=== PATIENT | male | born 1960 | race Caucasian/White ===

== ENCOUNTER 2019-06-25 22:35 | Inpatient (IN) | payer OTHER ==
[~2019-06-25] VITALS: Ht 30.5 cm; Wt 111.1 kg
[2019-06-26] VITALS (7 sets, daily range): BP systolic 15–165; BP diastolic 52–91
[2019-06-26] MEDS ORDERED: cefTRIAXone 1GM/50ML D5W 50 ML IV ONE ×2 (01:15→12:00)
[2019-06-26] MEDS ORDERED: VANCOMYCIN 1GM/250ML 250 ML IV ONE (01:45)
[2019-06-26] MEDS ORDERED: ALUM & MAG HYDROX-SIMETH LIQ(MAALOX) 30 ML PO PRN (02:00)
[2019-06-26] MEDS ORDERED: NITROGLYCERIN 0.4 MG SL TAB SL PRN (02:00)
[2019-06-26] MEDS ORDERED: ONDANSETRON HCL 4 MG/2 ML VIAL IV PRN (02:00)
[2019-06-26] MEDS ORDERED: HYDROmorphone HCL 2 MG/ML VL IV PRN (02:00)
[2019-06-26] MEDS ORDERED: ACETAMINOPHEN 325 MG TAB PO PRN (02:00)
[2019-06-26] MEDS ORDERED: MORPHINE SULFATE 4 MG/ML SYR/VIAL IV PRN (02:00)
[2019-06-26] MEDS ORDERED: MORPHINE SULF INJ 2 MG/ML SYRINGE 1ML IV PRN (02:00)
[2019-06-26] MEDS ORDERED: DEXTROSE (50%) 50ML SYRG IV PRN (02:00)
[2019-06-26] MEDS ORDERED: LACTULOSE 20Gm/30ML SOLN PO ONE (02:00)
[2019-06-26 02:14] LABS: Basophils # (auto) 0.1 10 ^3/uL (0-0.2); Basophils % (auto) 1.5 % (0.0-2.0); Eosinophils # (auto) 0.3 10 ^3/uL (0-0.8); Eosinophils % (auto) 4.6 % (0.0-7.0); Hematocrit 27.5 % (41.0-53.0); Hemoglobin 9.5 g/dL (13.5-17.5); Lymphocytes # (auto) 1.1 10 ^3/uL (0.4-5.4); Mean Corpuscular Hemoglobin 33.8 pg (28.0-32.0); Mean Corpuscular Hgb Conc. 34.4 g/dL (32.0-36.0); Mean Corpuscular Volume 98.5 fL (80.0-100.0); Monocytes # (auto) 0.9 10 ^3/uL (0-1.3); Monocytes % (auto) 14.7 % (0.0-12.0); Neutrophils # (auto) 3.5 10 ^3/uL (1.6-8.6); Neutrophils % (auto) 60.2 % (37.0-80.0); Platelet Count (auto) 238 10^3/uL (140-450); Red Cell Distribution Width 13.7 % (11.8-14.3); White Blood Cell 5.8 10^3/uL (4.4-10.8)
[2019-06-26 02:36] LABS: Anion Gap 10 (5-15); BUN/Creatinine Ratio 5.6; Blood Urea Nitrogen 42 mg/dL (7-18); Calcium 9.4 mg/dL (8.5-10.1); Carbon Dioxide 29 mmol/L (21-32); Chloride 98 mmol/L (98-107); GFR African American 10 mL/min; GFR Non-African American 8 mL/min; Glucose 108 mg/dL (74-106); Potassium 4.2 mmol/L (3.5-5.1); Sodium 137 mmol/L (136-145)
--- NOTE | 2019-06-26 03:02 | NUR ---
PATIENT ARRIVED TO UNIT Patient arrived to unit from ED. Patient is A&O X's 4 with no s/s of distress. Patient reports pain to lower extremities and relates it to his neuropathy and describes it as a "nerve pain that starts from feet and shoots up legs." rated at a 8. Patient also c/o pain at dialysis site to his right upper chest. Educated patient on POC/pain medication/pain management and to use call light when in need of assistance. Patient verbalized understanding. Will provide pain medication as ordered. Patient has a zion catheter site to right upper chest that is currently covered with gauze that is C/D/I. Patient has 20G IV to left hand. Oriented patient to unit/call light/tv/bathroom. Patient verbalized understanding. Bed is in lowest/locked position with side rails up X's 2 and call light is within reach of patient. Bed alarm is on for safety. Will continue care.
[2019-06-26] MEDS: DOCUSATE SOD 100 MG CAP PO SCH ×3 (03:41→22:06)
[2019-06-26] MEDS: SENNA 8.6 MG TAB PO SCH ×2 (03:41→22:06)
[2019-06-26] MEDS: HYDROcodone-ACET 5/325MG TAB PO PRN ×2 (03:43→08:43)
[2019-06-26] MEDS: InsuLIN REG 1unit/0.01ml Soln (100units/ml) SC SCH ×6 (04:00→23:59)
[2019-06-26] MEDS: SODIUM CHLORIDE 0.9% 1,000 ML IV SCH ×2 (04:03→18:27)
[2019-06-26] MEDS: ACCU-CHEK COMFORT CURVE STRIP VI SCH ×6 (04:03→23:59)
--- NOTE | 2019-06-26 04:50 | NUR ---
PAIN REASSESSMENT patient resting in bed and shows no s/s of distress or discomfort. Will continue care
[2019-06-26] MEDS ORDERED: GABA100C9 PO (05:01)
[2019-06-26] MEDS ORDERED: SEVE800T8 PO (05:01)
[2019-06-26] MEDS ORDERED: [UNRECOGNIZED DRUG - CODE] PO (05:01)
[2019-06-26] MEDS ORDERED: CARV3.1240 PO (05:01)
[2019-06-26] MEDS ORDERED: HYDR-4296 PO (05:01)
[2019-06-26] MEDS ORDERED: TAMS0.4C36 PO (05:01)
[2019-06-26] MEDS: GABAPENTIN 300 MG CAP PO SCH ×3 (05:40→22:06)
--- NOTE | 2019-06-26 06:27 | NUR ---
MRSA SWAB MRSA swab sent via bullet system
--- NOTE | 2019-06-26 06:46 | NUR ---
RECEIVED CALL FROM MD FRAGA Received orders to place the consult for nephro: Angela, because patient receives dialysis at [facility] in [place]. Orders were placed and community engagement manager notified of this change in consult.
--- NOTE | 2019-06-26 07:15 | NUR ---
Opening Shift Notes Report received and assumed care of patient, awake and alert. No S/S of distress/SOB or pain but still c/o abdominal pain due to no bowel movement x 1 week. Instructed on POC and nursing routines,call light within reach patient reminded instructed to call for assistance verbalized understanding.will continue to monitor for changes Q1hr and PRN.
[2019-06-26] MEDS ORDERED: CARVEDILOL 12.5 MG TAB PO SCH (10:00)
[2019-06-26] MEDS: LACTULOSE 20Gm/30ML SOLN PO SCH (10:59)
[2019-06-26] MEDS: AZITHROMYCIN 500MG/ 250ML 250 ML IV SCH (11:00)
--- NOTE | 2019-06-26 11:55 | NUR ---
MD VISIT DR. Pebbles BURGOS HERE TO SEE AND EXAMINED PATIENT,INFORMED OF PATIENT STATUS AND C/O CONSTIPATION DESPITE STOOL SOFTENERS BEING GIVEN, RECEIVED ORDER FOR MAGNESIUM CITRATE 1 BOTTLE AND TO CONSUL UROLOGIST.
[2019-06-26] MEDS ORDERED: MAGNESIUM CITRATE SOLUTION 300 ML BTL PO ONE (12:00)
--- NOTE | 2019-06-26 12:15 | NUR ---
INFORMED PATIENT BP 89/47,DR. Pebbles BURGOS HERE AND INFORMED OF ABOVE,INFORMED PATIENT HAD COREG 12.5 MG THIS A.M. RECEIVED ORDER TO HOLD COREG,CONTINUE IVF OF .9NS AT 60/HR AND CONNECT PATIENT TO TELEMETRY
--- NOTE | 2019-06-26 12:45 | NUR ---
BP RECHECKED 101/65, HR 69
--- NOTE | 2019-06-26 12:46 | NUR ---
C/O NAUSEA,MEDICATED WITH ZOFRAN SEE eMAR
--- NOTE | 2019-06-26 13:31 | NUR ---
[facility] Bill CALLED RECEIVED ORDER TO CONSULT INTERVENTION RADIOLOGIST FOR RIGHT NEPHROSTOMY TUBE PLACEMENT AND ORDER PT,PTT NOW INSTEAD OF TOMORROW.
--- NOTE | 2019-06-26 13:45 | NUR ---
BP RECHECKED 96/59,HR 71,PATIENT INSTRUCTED TO STAY IN BED AT THIS TIME.PATIENT VERBALIZED UNDERSTANDING.
--- NOTE | 2019-06-26 14:01 | NUR ---
CALLED,INFORMED PATIENT STATUS AND RECEIVING NS AT 60 CC/HR DUE TO LOW BP,STATED OK TO KEEP IVF RUNNING,STATED PATIENT WILL BE DIALYZE IN A.M.
[2019-06-26 15:16] LABS: INR 1.14 (0.9-1.15); Partial Thromboplastin Time 31.3 sec (23.64-32.05)
--- NOTE | 2019-06-26 17:00 | NUR ---
PATIENT TO RESTROOM STATED HAD LARGE BOWEL MOVEMENT
--- NOTE | 2019-06-26 19:00 | NUR ---
OPENING NOTE Received report from day shift RN. Patient is currently resting in bed with no s/s of distress or discomfort. Bed is in lowest/locked position with side rails up X's 2 and call light is within reach of patient. Walker is at bedside. Bed alarm set for safety. Will continue care.
--- NOTE | 2019-06-26 19:20 | NUR ---
Status unchanged no distress no discomfort,report given to incoming NOC RN.
--- NOTE | 2019-06-27 | NUR ---
PATIENT NPO Patient is NPO. Patient aware and verbalized understanding. No drinks/food at bedside.
[2019-06-27] MEDS: cefTRIAXone 1GM/50ML D5W 50 ML IV SCH (01:43)
[2019-06-27] MEDS: InsuLIN REG 1unit/0.01ml Soln (100units/ml) SC SCH ×5 (04:00→19:56)
[2019-06-27] MEDS: ACCU-CHEK COMFORT CURVE STRIP VI SCH ×5 (04:03→19:56)
[2019-06-27 04:49] VITALS: BP 143/74
--- NOTE | 2019-06-27 04:54 | NUR ---
SPOKE WITH DIALYSIS NURSE Rn notified me that she will be at the hospital for dialysis treatment in about one hour. Told her that there were no orders for dialysis but patient is supposed to receive it on tue/tue/ and fridays. She will contact MD Miller for the orders.
[2019-06-27] MEDS: GABAPENTIN 300 MG CAP PO SCH ×3 (05:26→21:18)
[2019-06-27] MEDS: HYDROcodone-ACET 5/325MG TAB PO PRN (05:52)
--- NOTE | 2019-06-27 06:15 | NUR ---
DIALYSIS NURSE AT BEDSIDE. PATIENT HAVING DIALYSIS DONE AT THIS TIME
--- NOTE | 2019-06-27 07:30 | NUR ---
Opening Shift Note Assuming care of patient at this time. Patient is resting in bed with eyes closed. circus hand at bedside performing dialysis. Bed is locked and lowered with side rails up x2. Patient shows no signs or symptoms of distress or shortness of breath. Instructed patient on the plan of care for today and to call for assistance as needed. Call light within reach. Will continue to round hourly and as needed.
[2019-06-27 09:00] VITALS: BP 131/74
[2019-06-27] MEDS ORDERED: FLUoxetine HCL 20 MG CAP PO ONE (10:30)
--- NOTE | 2019-06-27 11:00 | NUR ---
Dialysis complete Patient's dialysis is complete. 2L were removed. BP: 137/71, HR: 92, Pain: 8/10, will medicate according to doctor's orders.
[2019-06-27] MEDS: SODIUM CHLORIDE 0.9% 1,000 ML IV SCH (11:07)
[2019-06-27] MEDS: LACTULOSE 20Gm/30ML SOLN PO SCH (11:30)
[2019-06-27] MEDS: MORPHINE SULF INJ 2 MG/ML SYRINGE 1ML IV PRN ×2 (11:30→19:53)
[2019-06-27] MEDS: AZITHROMYCIN 500MG/ 250ML 250 ML IV SCH (11:30)
[2019-06-27] MEDS: DOCUSATE SOD 100 MG CAP PO SCH ×2 (11:30→21:19)
--- NOTE | 2019-06-27 11:30 | NUR ---
Pain Patient is complaining of back pain, 10/21. Will administer morphine according to doctor's orders.
--- NOTE | 2019-06-27 11:30 | NUR ---
Pain Patient is complaining of generalized back pain, 10/21. Administered morphine at this time according to doctor's orders. Will reassess.
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
--- NOTE | 2019-06-27 12:00 | NUR ---
Refusal of Nephrostomy Tube Patient has been going back and forth about proceeding with procedure scheduled for today. Ultimately, patient has decided to not have nephrostomy tube placed.
--- NOTE | 2019-06-27 12:00 | NUR ---
Pain Reassessment Patient states that the pain has resolved to 6/10, which at this time is tolerable for him.
--- NOTE | 2019-06-27 12:45 | NUR ---
assessment re: betty consult requesting placement Patient is a 58 year old male who is alert and oriented. Prior to admission patient rented a room and functioned independently. Patient informed me he is able to care for his own ADLs. Per patient he would like SNF placement due to weakness. Patient will need a PT eval to determine if he qualifies for SNF. Patient is on dialysis with [facility] MWF. Patient informed me he has a fww and a cane for home use. I informed patient he has a right to speak to a secondary social studies teacher regarding all care. I informed patient he has a right to participate in any and all discharge planning. Patient has a POA and advanced directive. Patient verbalized understanding. Addendum: 06/27/19 at 1249 by Elizabeth CORTEZ Amended: Links added.
[2019-06-27 13:00] VITALS: BP 124/65
[2019-06-27] MEDS ORDERED: SODIUM CHL 0.9% 1000 ML BAG XX ONE (13:30)
[2019-06-27 16:39] VITALS: BP 122/63
--- NOTE | 2019-06-27 18:00 | NUR ---
Urology Consult Lucas at bedside discussing plan of care with patient. Lucas aware that patient refused nephrostomy tube. New order for renal scan scheduled for tomorrow to see if kidney is functioning. Patient aware.
--- NOTE | 2019-06-27 19:30 | NUR ---
OPENING NOTE REPORT RECEIVED FROM DAYSHIFT RN PATIENT IS A/OX4 RESTING IN BED. PHYSICAL ASSESSMENT DONE-SEE INTERVENTIONS. RIGHT UPPER CHEST LEATHA IN PLACE. POC DISCUSSED, ALL QUESTIONS ANSWERED. WILL MONITOR Q1H PRN THROUGHOUT SHIFT,CALL LIGHT WITHIN REACH.
--- NOTE | 2019-06-27 19:35 | NUR ---
Closing Shift Note Patient resting in bed. No distress noted. Report given. Will endorse care to the warehouse shift supervisor RN.
--- NOTE | 2019-06-27 19:53 | NUR ---
PAIN PATIENT C/O 9/10 PAIN TO BACK PATIENT REQUESTED MORPHINE. MORPHINE ADMINISTERED ORDERED-SEE EMAR FOR DETAILS WILL REASSESS IN 30MIN
--- NOTE | 2019-06-27 20:23 | NUR ---
PAIN REASSESSMENT PATIENT SLEEPING AT THIS TIME. NO SIGNS OF PAIN NOTED
[2019-06-27] MEDS ORDERED: EPOETIN ALFA 4,000 UNIT/ML VL SC ONE (21:00)
[2019-06-27] MEDS: SENNA 8.6 MG TAB PO SCH (21:19)
[2019-06-27 22:00] VITALS: BP 130/72
[2019-06-28] MEDS: MORPHINE SULF INJ 2 MG/ML SYRINGE 1ML IV PRN (00:36)
[2019-06-28] MEDS: ACCU-CHEK COMFORT CURVE STRIP VI SCH ×5 (00:36→16:00)
--- NOTE | 2019-06-28 00:36 | NUR ---
PAIN PATIENT STATES HE IS HAVING 8/10 PAIN TO HIS BACK AND LEGS. PATIENT REQUESTED MORPHINE FOR PAIN. MORPHINE ADMINISTERED ORDERED BY MD. SEE EMAR FOR DETAILS WILL REASSESS IN 30 MINS
--- NOTE | 2019-06-28 01:06 | NUR ---
PAIN REASSESSMENT PATIENT SLEEPING COMFORTABLY AT THIS TIME. NO SIGNS OF PAIN NOTED. WILL CONTINUE TO MONITOR
[2019-06-28] MEDS: cefTRIAXone 1GM/50ML D5W 50 ML IV SCH (01:50)
[2019-06-28] MEDS: InsuLIN REG 1unit/0.01ml Soln (100units/ml) SC SCH ×5 (04:00→16:00)
[2019-06-28 05:00] VITALS: BP 142/90
[2019-06-28] MEDS: GABAPENTIN 300 MG CAP PO SCH ×2 (06:08→14:00)
--- NOTE | 2019-06-28 06:54 | NUR ---
CLOSING PATIENT RESTING COMFORTABLY IN BED. NO S/S OF DISTRESS NOTED. CALL LIGHT WITHIN REACH. WILL ENDORSE CARE TO AM SHIFT RN
--- NOTE | 2019-06-28 07:20 | NUR ---
Opening shift note Assumed care of patient. Patient A&Ox4, respirations even and non-labored with no s/s of distress. Discussed POC and upcoming procedure with patient who verbalized understanding. IV flushed, patent and intact. Bed lowered/locked with 2 side rails up. Call light within reach. Will continue to monitor.
[2019-06-28 08:37] VITALS: BP 162/93
[2019-06-28] MEDS: LACTULOSE 20Gm/30ML SOLN PO SCH (09:27)
[2019-06-28] MEDS: DOCUSATE SOD 100 MG CAP PO SCH (09:28)
[2019-06-28] MEDS ORDERED: AZITHROMYCIN 250 MG TAB PO SCH (10:00)
[2019-06-28] MEDS ORDERED: FLUoxetine HCL 20 MG CAP PO SCH (10:00)
--- NOTE | 2019-06-28 10:30 | NUR ---
Elevated Blood Pressure Patient has a blood pressure of 162/93, heart rate of 89. Notified Dr. Schultz, no new orders given.
[2019-06-28] MEDS ORDERED: FUROSEMIDE 100 MG/10ML VIAL IV ONE (11:30)
[2019-06-28 12:30] VITALS: BP_SYST 138; BP_SYST 148; BP_DIAS 54; BP_DIAS 77
[2019-06-28 13:35] VITALS: BP 162/93
--- NOTE | 2019-06-28 16:19 | NUR ---
Discharge Discharge instructions given as ordered. Encourage to follow up with PMD as instructed. All questions and concerns addressed. Patient verbalized understanding. Medication reconciliation form completed and copy given to patient. IV removed with catheter intact, pressure dressing applied. Telemetry unit returned to ICU. Patient taken to vehicle via wheelchair with all personal belongings, accompanied by staff. No distress noted at time of departure.
== END 2019-06-28 16:00 | disposition home or self-care (01) | DRG 388 ==
LOC: ER 22:46 → OVERFLOW 22:47 → WEST WING 06-26 03:02 → TELE-WESTW 06-26 12:22
PROVIDERS: ADMIT Hospitalist; ATTEND Family Medicine
PROC: 5A1D70Z Performance of Urinary Filtration, Intermittent, Less than 6 Hours Per Day (ICD-10-PCS; principal; 2019-06-27)
DX: K56.41 Fecal impaction (principal); J18.9 Pneumonia, unspecified organism; N18.6 End stage renal disease; I12.0 Hypertensive chronic kidney disease with stage 5 chronic kidney disease or end stage renal disease; N13.2 Hydronephrosis with renal and ureteral calculous obstruction; E11.40 Type 2 diabetes mellitus with diabetic neuropathy, unspecified; D63.1 Anemia in chronic kidney disease; E11.22 Type 2 diabetes mellitus with diabetic chronic kidney disease; F32.9 Major depressive disorder, single episode, unspecified; Z79.899 Other long term (current) drug therapy; Z99.2 Dependence on renal dialysis; Z83.3 Family history of diabetes mellitus; Z87.442 Personal history of urinary calculi; Z82.49 Family history of ischemic heart disease and other diseases of the circulatory system; Z85.528 Personal history of other malignant neoplasm of kidney; Z90.5 Acquired absence of kidney
CPT/HCPCS: 36415; 71250; 74176; 78707; 80048; 82962; 83036; 84132; 84484; 85025; 85610; 85730; 87081; 93005; G0378; J0696; J1815; J2405

== ENCOUNTER 2019-07-13 17:15 | Inpatient (IN) | payer OTHER ==
[~2019-07-13] VITALS: Ht 190.5 cm; Wt 107.4 kg
[~2019-07-13 17:15] MED LIST: CARV3.1240 PO; GABA100C9 PO; HYDR-4296 PO; SEVE800T8 PO; TAMS0.4C36 PO; [UNRECOGNIZED DRUG - CODE] PO
[2019-07-13] MEDS ORDERED: SODIUM CHLORIDE 0.9% 500 ML IVB ONE (17:48)
[2019-07-13] MEDS ORDERED: ONDANSETRON HCL 4 MG/2 ML VIAL IV ONE (18:00)
[2019-07-13] MEDS ORDERED: MORPHINE SULF INJ 2 MG/ML SYRINGE 1ML IV ONE ×2 (18:00→20:00)
[2019-07-13 18:53] LABS: Basophils # (auto) 0.1 10 ^3/uL (0-0.2); Basophils % (auto) 2.2 % (0.0-2.0); Eosinophils # (auto) 0.3 10 ^3/uL (0-0.8); Eosinophils % (auto) 5.6 % (0.0-7.0); Lymphocytes # (auto) 0.9 10 ^3/uL (0.4-5.4); Lymphocytes % (auto) 15.7 % (10.0-50.0); Mean Corpuscular Hemoglobin 33.8 pg (28.0-32.0); Mean Corpuscular Hgb Conc. 34.6 g/dL (32.0-36.0); Mean Corpuscular Volume 97.6 fL (80.0-100.0); Monocytes # (auto) 0.8 10 ^3/uL (0-1.3); Monocytes % (auto) 13.1 % (0.0-12.0); Neutrophils # (auto) 3.6 10 ^3/uL (1.6-8.6); Neutrophils % (auto) 63.4 % (37.0-80.0); Nucleated Red Blood Cells % 0.1 %; Platelet Count (auto) 243 10^3/uL (140-450); Red Blood Cells 2.97 10^6/uL (4.5-5.90); Red Cell Distribution Width 14.1 % (11.8-14.3); White Blood Cell 5.7 10^3/uL (4.4-10.8)
[2019-07-13 19:05] LABS: Albumin 3.2 g/dL (3.4-5.0); Calcium 8.7 mg/dL (8.5-10.1); INR 1.13 (0.9-1.15); Magnesium 2.3 mg/dL (1.6-2.6); Partial Thromboplastin Time 28.3 sec (23.64-32.05); Potassium 3.4 mmol/L (3.5-5.1)
[2019-07-13 19:08] LABS: BUN/Creatinine Ratio 2.9; Bilirubin, Total 1.1 mg/dL (0.2-1.0); Total Protein 7.6 g/dL (6.4-8.2)
[2019-07-13] MEDS ORDERED: PROMETHAZINE HCL 25 MG/ML 1ML IV ONE (20:00)
[2019-07-13] MEDS ORDERED: ONDANSETRON HCL 4 MG/2 ML VIAL IV PRN (20:45)
[2019-07-13] MEDS ORDERED: MORPHINE SULF INJ 2 MG/ML SYRINGE 1ML IV PRN (20:45)
[2019-07-13] MEDS ORDERED: ALUM & MAG HYDROX-SIMETH LIQ(MAALOX) 30 ML PO PRN (20:45)
[2019-07-13] MEDS ORDERED: LORazepam 0.5 MG TAB PO PRN (20:45)
[2019-07-13] MEDS ORDERED: NITROGLYCERIN 0.4 MG SL TAB SL PRN (20:45)
[2019-07-13] MEDS: hydrALAZINE HCL 25 MG TAB PO SCH (22:31)
[2019-07-13] MEDS: CARVEDILOL 3.125 MG TAB PO SCH (22:32)
[2019-07-13] MEDS: FAMOTIDINE 20 MG TAB PO SCH (22:33)
[2019-07-13] MEDS: GABAPENTIN 100 MG CAP PO SCH (22:33)
[2019-07-13 23:18] VITALS: BP 145/80
--- NOTE | 2019-07-13 23:18 | NUR ---
Telemetry admit from SAURABH RODRIGUEZKENNY HEMPHILL admitted to Telemetry unit at this time. Patient oriented to COMFORT DIEZ, RN primary RN, unit, room, bed, and unit policies regarding patient care and visiting hours. Patient now on continuous telemetry monitoring, tele box # 60 and telemetry reading on arrival to unit is sinus rhythm at 73 beats per minute. Patient placed on bedside oxygen at 2.0 liters via nasal cannula, weighed by bedscale and encouraged to call if they need something. All questions and concerns addressed, patient verbalized understanding. Bed in lowest locked position, side rails up x2, call light within reach. Right IJ permacath noted to be clean, dry, and intact. Patient reports last dialysis today. Will round every hour and as needed and continue to monitor.
[2019-07-13 23:53] VITALS: BP 145/80
[2019-07-14] MEDS ORDERED: GLIM-5 PO (00:08)
[2019-07-14] MEDS ORDERED: ATOR10TA52 PO (00:08)
[2019-07-14] MEDS ORDERED: LACT10SO70 PO (00:09)
[2019-07-14] MEDS ORDERED: FLUO60TA7 PO (00:11)
[2019-07-14] MEDS ORDERED: SERT-275 PO (00:11)
--- NOTE | 2019-07-14 03:40 | NUR ---
Closing Note Patient lying in bed, eyes closed, respirations even and unlabored, appears asleep. Patient awakens to name and touch. No s/s of distress. Care endorsed to Juan MORELAND for continuation of care.
--- NOTE | 2019-07-14 03:42 | NUR ---
Assumed care of patient Patient lying in bed and has no s/s of distress or SOB. Will continue to monitor Q1 and PRN.
[2019-07-14] MEDS: MORPHINE SULFATE 4 MG/ML SYR/VIAL IV PRN ×4 (03:45→19:45)
--- NOTE | 2019-07-14 04:00 | NUR ---
Pain Pain level 10, on a pain scale of 0-10. Medicated per MD orders. Will continue to monitor Q1 and PRN. Patient is awake at this time and has no s/s of distress or SOB. Patient on 2L NC and tolerating well.
--- NOTE | 2019-07-14 04:20 | NUR ---
Pain Reassessment At this time, patient states pain is tolerable and that he is able to rest comfortably. Will continue to monitor Q1 and PRN. Call light and bedside table are within reach. Safety precautions maintained bed is in lowest position and bed rails 2x.
[2019-07-14 05:00] VITALS: BP 142/72
[2019-07-14] MEDS: hydrALAZINE HCL 25 MG TAB PO SCH ×3 (06:03→22:00)
[2019-07-14] MEDS: GABAPENTIN 100 MG CAP PO SCH ×3 (06:04→22:04)
[2019-07-14] MEDS: DOCUSATE SOD 100 MG CAP PO PRN ×2 (06:04→22:04)
[2019-07-14 07:00] LABS: Basophils # (auto) 0.1 10 ^3/uL (0-0.2); Basophils % (auto) 2.2 % (0.0-2.0); Eosinophils # (auto) 0.5 10 ^3/uL (0-0.8); Eosinophils % (auto) 11.2 % (0.0-7.0); Hematocrit 29.9 % (41.0-53.0); Hemoglobin 10.1 g/dL (13.5-17.5); Lymphocytes % (auto) 21.1 % (10.0-50.0); Mean Corpuscular Hgb Conc. 33.7 g/dL (32.0-36.0); Mean Corpuscular Volume 97.7 fL (80.0-100.0); Monocytes # (auto) 0.5 10 ^3/uL (0-1.3); Monocytes % (auto) 11.4 % (0.0-12.0); Neutrophils # (auto) 2.5 10 ^3/uL (1.6-8.6); Neutrophils % (auto) 54.1 % (37.0-80.0); Nucleated Red Blood Cells % 0.1 %; Platelet Count (auto) 235 10^3/uL (140-450); Red Blood Cells 3.06 10^6/uL (4.5-5.90); Red Cell Distribution Width 14.3 % (11.8-14.3); White Blood Cell 4.5 10^3/uL (4.4-10.8)
[2019-07-14 07:12] LABS: INR 1.14 (0.9-1.15); Partial Thromboplastin Time 29.2 sec (23.64-32.05)
[2019-07-14 07:18] LABS: Albumin 3.1 g/dL (3.4-5.0); Calcium 8.4 mg/dL (8.5-10.1); Magnesium 2.5 mg/dL (1.6-2.6); Potassium 3.8 mmol/L (3.5-5.1)
--- NOTE | 2019-07-14 07:20 | NUR ---
End of Shift Note Endorsed care to Carolina MORELAND. Patient has no s/s of distress, SOB, or pain. Patient awakens to name.
[2019-07-14 07:23] LABS: BUN/Creatinine Ratio 2.8; Bilirubin, Total 1.1 mg/dL (0.2-1.0); Phosphorus 3.6 mg/dL (2.5-4.90); Total Protein 7.1 g/dL (6.4-8.2)
[2019-07-14 08:00] VITALS: BP 142/66
--- NOTE | 2019-07-14 08:00 | NUR ---
Opening Shift Note Assumed care of patient, who is alert and oriented x4. No S/S of distress/SOB or pain. Bed is low, locked with 2x side rails up. Call light is within reach. Instructed on POC and to call for assist PRN, will continue to monitor for changes Q1hr and PRN.
[2019-07-14] MEDS: CARVEDILOL 3.125 MG TAB PO SCH ×2 (08:06→17:44)
[2019-07-14] MEDS: FAMOTIDINE 20 MG TAB PO SCH (08:06)
[2019-07-14 08:56] VITALS: BP 142/66
--- NOTE | 2019-07-14 10:05 | NUR ---
Spoke with Dr. La (Urology) Updated MD, received new orders. Patient is to have a right percutaneous nephrostomy tube placement on Tuesday07/16/[address] La spoke with patient and updated patient on nephrostomy tube placement; patient verbalized understanding.
--- NOTE | 2019-07-14 11:34 | NUR ---
Spoke with Dr. Vasquez (Nephrology) Updated MD on patients plan of care and upcoming nephrostomy tube placement on Tuesday. Dr. Vasquez to arrange dialysis for patient on Tuesday. Will continue to monitor.
--- NOTE | 2019-07-14 11:50 | NUR ---
Dr. Arroyo Rounding Dr. Arroyo is at bedside; updated patient on POC.
[2019-07-14 12:59] VITALS: BP 134/74
[2019-07-14] MEDS ORDERED: POLYETHYLENE GLYCOL 17 GM PWDR PO ONE (14:45)
[2019-07-14] MEDS ORDERED: cefTRIAXone 1GM/50ML D5W 50 ML IV ONE (15:00)
[2019-07-14 16:53] VITALS: BP 139/65
[2019-07-14] MEDS: HYDROcodone-ACET 5/325MG TAB PO PRN ×2 (17:43→22:04)
--- NOTE | 2019-07-14 17:43 | NUR ---
Pain Patient reporting 9/10 generalized pain. Upon assessing this nurse advised patient that he was not due for morphine (see orders) patient stated he would like a norco to "take the edge off". Medicated patient per MD order. Will reassess.
[2019-07-14] MEDS: TAMSULOSIN HYDROCHLORIDE 0.4 MG CAP PO SCH (17:44)
--- NOTE | 2019-07-14 19:25 | NUR ---
Opening Shift Note Assumed care of patient, awake and alert. No S/S of distress/SOB. Patient reporting 9/10 pain to abdomen and groin areas, will medicate as ordered (see emar). Bed in lowest locked position, side rails up x2, call light within reach. Instructed on POC and to call for assist PRN, will continue to monitor for changes Q1hr and PRN.
[2019-07-14 22:00] VITALS: BP 105/57
--- NOTE | 2019-07-14 22:04 | NUR ---
Patient reporting 8/10 pain to abdomen and groin areas, will medicate with morphine as ordered (see emar) and continue to monitor.
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
--- NOTE | 2019-07-15 02:20 | NUR ---
Return call from sap functional analyst hospitalist Dr. Dakota Arellano MD, new order received for Ativan 1 mg IV every six hours as needed for anxiety. Order read back and verified, will implement as ordered and continue to monitor. Addendum: 07/15/19 at 044 by COMFORT DIEZ RN RN ADDITION: Order to discontinue PO Ativan from MD. Order read back and verified, will implement as ordered and continue to monitor. Addendum: 07/15/19 at 044 by COMFORT DIEZ RN RN ADDITION: made aware patient becoming altered and refusing PO Ativan at time of return call.
[2019-07-15] MEDS ORDERED: LORazepam 2MG/ML-1ML VIAL IV PRN (02:30)
--- NOTE | 2019-07-15 02:51 | NUR ---
Shannan DOMÍNGUEZ at bedside as safety and skill based pay manager. Will continue to monitor.
[2019-07-15] MEDS: GABAPENTIN 100 MG CAP PO SCH ×3 (05:59→22:00)
[2019-07-15] MEDS: hydrALAZINE HCL 25 MG TAB PO SCH ×3 (05:59→22:00)
--- NOTE | 2019-07-15 07:30 | NUR ---
Opening Shift Note Assumed care of patient, alert to self only. Sitter is at bedside for safety. No S/S of SOB or pain. Bed is low, locked with rails up for safety. Instructed on POC and to call for assist PRN, will continue to monitor for changes Q1hr and PRN.
--- NOTE | 2019-07-15 07:30 | NUR ---
Closing Note Patient lying in bed, awake and alert. yard attendant at bedside. No s/s of distress. Care endorsed to dayshift RN.
[2019-07-15 07:37] LABS: BUN/Creatinine Ratio 3.9; Calcium 8.6 mg/dL (8.5-10.1); Magnesium 2.5 mg/dL (1.6-2.6); Potassium 4.3 mmol/L (3.5-5.1)
[2019-07-15] MEDS: CARVEDILOL 3.125 MG TAB PO SCH ×2 (08:00→17:19)
--- NOTE | 2019-07-15 08:15 | NUR ---
Updated Dr. Arroyo Updated MD on events that occurred over night and patients current status. New orders received, (see orders).
[2019-07-15] MEDS: HALOPERIDOL LACTATE 5 MG/ML INJ VIAL IM PRN (08:39)
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
[2019-07-15] MEDS: cefTRIAXone 1GM/50ML D5W 50 ML IV SCH (09:00)
--- NOTE | 2019-07-15 09:30 | NUR ---
UA Unable to insert aguilar and retrieve urine for ordered UA. Patient continues to be combative and confused at this time. Will attempt at a later time.
--- NOTE | 2019-07-15 09:56 | NUR ---
Reassessed patient for agitation Patient continues to be agitated and confused. Patient is not following commands and keeps attempting to get out of bed. Applied luz boots to protect bilateral lower extremities and feet. Patient is still kicking side rails and now has skin tears to toes on both feet. Charge nurse at bedside with other staff members to pad side rails. Updated Dr. Arroyo on patient's current status. New orders received and carried out. Will continue to monitor.
[2019-07-15] MEDS: FAMOTIDINE 20 MG TAB PO SCH (10:00)
[2019-07-15] MEDS: POLYETHYLENE GLYCOL 17 GM PWDR PO SCH (10:00)
[2019-07-15] MEDS ORDERED: HALOPERIDOL LACTATE 5 MG/ML INJ VIAL IM ONE ×2 (10:00→12:15)
--- NOTE | 2019-07-15 10:47 | NUR ---
Reassessment: Agitation Patient is laying in bed with eyes closed, respirations are even and unlabored. Sitter at bedside for safety. Will continue to monitor.
[2019-07-15 13:00] VITALS: BP 135/69
--- NOTE | 2019-07-15 13:50 | NUR ---
Rounds Patient is laying in bed with eyes closed, respirations are even and unlabored. Sitter at bedside for safety. Will continue to monitor.
--- NOTE | 2019-07-15 16:52 | NUR ---
Patient awake Patient is asking if he can get out of the bed so he can drive his car. He believes he is at the gas station. I re-oriented patient and let him know that he is at the hospital. Patient not following commands and is oriented to self only. Patient is becoming agitated saying "No, I dont want to be here". Patient stated he will not take his PO medications unless this nurse lets him get out of the bed. Sitter at bedside. Will continue to monitor.
[2019-07-15] MEDS: TAMSULOSIN HYDROCHLORIDE 0.4 MG CAP PO SCH (17:19)
[2019-07-15 17:21] VITALS: BP 133/61
--- NOTE | 2019-07-15 19:15 | NUR ---
Opening Shift Note Assumed care of patient. Patient appears to be sleeping with No S/S of distress/SOB or pain. Will continue to monitor for changes Q1hr and PRN. Side rails up x2. Bed locked in lowest position. Call light within reach. Sitter at bedside for safety.
[2019-07-15 20:11] VITALS: BP 118/53
--- NOTE | 2019-07-16 | NUR ---
Rounds Patient in bed asleep with no signs of distress/sob/pain. Will continue to monitor Q1H PRN. Sitter at bedside.
--- NOTE | 2019-07-16 04:15 | NUR ---
Patient awake alert and oriented x3. Patient verbalized "What happened, i remember coming in the ER but i dont remember what happened after" This RN Reoriented patient and explained what had happened. Continue care. Sitter remains at bedside.
[2019-07-16 05:13] VITALS: BP 125/51
[2019-07-16] MEDS: GABAPENTIN 100 MG CAP PO SCH ×3 (06:00→21:02)
[2019-07-16] MEDS: hydrALAZINE HCL 25 MG TAB PO SCH ×3 (06:00→21:02)
--- NOTE | 2019-07-16 06:00 | NUR ---
Aguilar catheter Patient refused to have aguilar catheter inserted at this time. Patient verbalized "I will try to urinate myself, just give me a little bit of time" Educated patient on reasons for the aguilar catheter. Patient verbalized understanding and will notify RN if unable to urinate independently. Patient verbalized "I usually do not make any urine"
[2019-07-16 06:32] LABS: Hematocrit 28.7 % (41.0-53.0); Hemoglobin 9.7 g/dL (13.5-17.5); Mean Corpuscular Hemoglobin 33.5 pg (28.0-32.0); Mean Corpuscular Hgb Conc. 33.7 g/dL (32.0-36.0); Mean Corpuscular Volume 99.4 fL (80.0-100.0); Platelet Count (auto) 234 10^3/uL (140-450); Red Blood Cells 2.89 10^6/uL (4.5-5.90); Red Cell Distribution Width 14.7 % (11.8-14.3); White Blood Cell 5.7 10^3/uL (4.4-10.8)
[2019-07-16 06:50] LABS: Albumin 2.7 g/dL (3.4-5.0); Calcium 8.4 mg/dL (8.5-10.1); Potassium 4.3 mmol/L (3.5-5.1)
[2019-07-16 06:52] LABS: BUN/Creatinine Ratio 4.3
[2019-07-16 06:55] LABS: Band Neutrophils % (manual) 0; Bilirubin, Total 0.9 mg/dL (0.2-1.0); Blast Cells 0; Metamyelocytes % 0; Myelocytes % 0; Promyelocytes % 0; Reactive Lymphocytes 0; Total Protein 6.7 g/dL (6.4-8.2)
[2019-07-16] MEDS ORDERED: SODIUM CHL 0.9% 1000 ML BAG XX ONE (07:00)
[2019-07-16 07:48] LABS: Basophils % (manual) 1 (0.0-2.0); Eosinophils % (manual) 16 (0-7); Lymphocytes % (manual) 10 (10.0-50.0); Monocytes % (manual) 9 (0-12)
[2019-07-16 09:00] VITALS: BP 124/59
[2019-07-16] MEDS: CARVEDILOL 3.125 MG TAB PO SCH ×2 (10:39→18:40)
[2019-07-16] MEDS: cefTRIAXone 1GM/50ML D5W 50 ML IV SCH (10:39)
[2019-07-16] MEDS: POLYETHYLENE GLYCOL 17 GM PWDR PO SCH (10:39)
[2019-07-16] MEDS: FAMOTIDINE 20 MG TAB PO SCH (10:39)
[2019-07-16 13:00] VITALS: BP 123/44
--- NOTE | 2019-07-16 15:00 | NUR ---
Nephrostomy This nurse was informed that the nephrostomy tube will be placed tomorrow instead of today, possibly around 1000. Pt to be NPO after midnight. Will notify maintenance supervisor 2nd shift nurse. Gave patient food as he has been NPO all day waiting for procedure.
--- NOTE | 2019-07-16 15:00 | NUR ---
HD HD started.
[2019-07-16 17:00] VITALS: BP_SYST 117; BP_SYST 124; BP_DIAS 73; BP_DIAS 79
[2019-07-16] MEDS: TAMSULOSIN HYDROCHLORIDE 0.4 MG CAP PO SCH (18:39)
--- NOTE | 2019-07-16 19:00 | NUR ---
Opening Shift Note Assumed care of patient, awake and alert. No S/S of distress/SOB or pain. Instructed on POC and to call for assist PRN, will continue to monitor for changes Q1hr and PRN. Side rails up x2. Bed locked in lowest position. Call light within reach.
--- NOTE | 2019-07-16 20:45 | NUR ---
IV insertion IV access obtained, via clean sterile technique by inserting 22 gauge catheter on left forearm after 1 attempt. IV secured properly. No trauma to site. Patient tolerated well.
--- NOTE | 2019-07-16 20:48 | NUR ---
Agitation Patient agitated and anxious. Attempted to calm patient with deep breathing technique. Patient remained agitated and anxious. Will administer prescribed Haldol.
[2019-07-16] MEDS ORDERED: EPOETIN ALFA 4,000 UNIT/ML VL SC ONE (21:00)
[2019-07-16] MEDS: HALOPERIDOL LACTATE 5 MG/ML INJ VIAL IM PRN (21:03)
[2019-07-16 22:00] VITALS: BP 108/46
[2019-07-17 00:30] LABS: Urine Bacteria FEW /hpf (None Seen); Urine Blood TRACE /uL (Negative); Urine Specific Gravity 1.006 (1.001-1.035); Urine WBC 71 /hpf (0 - 3)
[2019-07-17 04:47] VITALS: BP 149/69
[2019-07-17] MEDS: GABAPENTIN 100 MG CAP PO SCH ×2 (06:00→13:52)
[2019-07-17] MEDS: hydrALAZINE HCL 25 MG TAB PO SCH ×2 (06:00→13:52)
--- NOTE | 2019-07-17 07:00 | NUR ---
Opening Shift Note Received report on the patient. Awake lying in bed. Patient shows no signs of distress at this time. Discussed the plan of care with the patient. Bed in lowest position, side rails up x2, and the call light is within reach. Will continue to monitor.
--- NOTE | 2019-07-17 07:30 | NUR ---
Endorsed care to day shift RN.
[2019-07-17] MEDS: CARVEDILOL 3.125 MG TAB PO SCH (08:33)
[2019-07-17] MEDS: cefTRIAXone 1GM/50ML D5W 50 ML IV SCH (08:34)
[2019-07-17 09:00] VITALS: BP 143/84
--- NOTE | 2019-07-17 10:02 | NUR ---
Platform Mill Supervisor Patient down to laborer filter plant. No signs of distress at this time.
[2019-07-17] MEDS ORDERED: IODIXANOL 320MG/ML 100ML BTL IV ONE (10:43)
[2019-07-17] MEDS ORDERED: LIDOCAINE 2%HCL (LOCAL ANESTH.) INJ 20ML MDV ONE (10:43)
[2019-07-17] MEDS ORDERED: MIDAZOLAM HCL 1MG/1ML-2 ML VIAL ONE (10:51)
[2019-07-17] MEDS ORDERED: fentaNYL CITRATE 100 MCG/2 ML VL ONE (10:51)
--- NOTE | 2019-07-17 12:01 | NUR ---
Dr Arroyo at bedside. New orders received
[2019-07-17] MEDS: POLYETHYLENE GLYCOL 17 GM PWDR PO SCH (12:32)
[2019-07-17] MEDS: FAMOTIDINE 20 MG TAB PO SCH (12:32)
[2019-07-17 13:00] VITALS: BP 162/81
[2019-07-17 15:41] VITALS: BP 162/81
--- NOTE | 2019-07-17 16:18 | NUR ---
Discharge instructions given as ordered. Encourage to follow up with PMD as instructed. All questions and concerns addressed. Patient verbalized understanding. Medication reconciliation form completed and copy given to patient. IV removed with catheter intact, pressure dressing applied Telemetry unit returned to ICU. Patient taken to vehicle via wheelchair with all personal belongings, accompanied by staff and family member. No distress noted at time of departure.
== END 2019-07-17 16:42 | disposition home or self-care (01) | DRG 693 ==
LOC: ER 17:15 → EDBD 17:15 → TELE 17:16 → TELE-WESTW 23:10
PROVIDERS: ADMIT Hospitalist; ATTEND Internal Medicine
PROC: 5A1D70Z Performance of Urinary Filtration, Intermittent, Less than 6 Hours Per Day (ICD-10-PCS; principal; 2019-07-16)
DX: N13.2 Hydronephrosis with renal and ureteral calculous obstruction (principal); G93.41 Metabolic encephalopathy; E44.0 Moderate protein-calorie malnutrition; I12.0 Hypertensive chronic kidney disease with stage 5 chronic kidney disease or end stage renal disease; N18.6 End stage renal disease; K59.09 Other constipation; D63.8 Anemia in other chronic diseases classified elsewhere; E87.6 Hypokalemia; E21.3 Hyperparathyroidism, unspecified; N40.0 Benign prostatic hyperplasia without lower urinary tract symptoms; E11.40 Type 2 diabetes mellitus with diabetic neuropathy, unspecified; E11.22 Type 2 diabetes mellitus with diabetic chronic kidney disease; Z90.5 Acquired absence of kidney; Z43.6 Encounter for attention to other artificial openings of urinary tract; Z99.2 Dependence on renal dialysis; Z79.899 Other long term (current) drug therapy; Z82.49 Family history of ischemic heart disease and other diseases of the circulatory system; Z80.9 Family history of malignant neoplasm, unspecified; Z83.3 Family history of diabetes mellitus; Z68.29 Body mass index [BMI] 29.0-29.9, adult
CPT/HCPCS: 36415; 70450; 71045; 74176; 80048; 80053; 81001; 83036; 83690; 83735; 84100; 85007; 85025; 85027; 85610; 85730; 87081; 90935; 93005; 96361; 96374; 96375; 96376; G0378; J0696; J1642; J2250; J2405; Q9967

== ENCOUNTER 2019-07-20 15:20 | Inpatient (IN) | payer OTHER ==
[~2019-07-20] VITALS: Ht 190.5 cm; Wt 114.2 kg
[~2019-07-20 15:20] MED LIST changes: +ATOR10TA52 PO; +FLUO60TA7 PO; +GLIM-5 PO; +LACT10SO70 PO; +SERT-275 PO
[2019-07-20] MEDS ORDERED: MORPHINE SULFATE 4 MG/ML SYR/VIAL IV ONE (16:00)
[2019-07-20] MEDS ORDERED: ONDANSETRON HCL 4 MG/2 ML VIAL IV ONE (16:00)
[2019-07-20 16:13] LABS: Basophils # (auto) 0.1 10 ^3/uL (0-0.2); Basophils % (auto) 1.2 % (0.0-2.0); Eosinophils # (auto) 0.6 10 ^3/uL (0-0.8); Hematocrit 25.7 % (41.0-53.0); Hemoglobin 8.9 g/dL (13.5-17.5); Lymphocytes # (auto) 0.8 10 ^3/uL (0.4-5.4); Lymphocytes % (auto) 12.7 % (10.0-50.0); Mean Corpuscular Hemoglobin 33.7 pg (28.0-32.0); Mean Corpuscular Hgb Conc. 34.8 g/dL (32.0-36.0); Mean Corpuscular Volume 96.9 fL (80.0-100.0); Monocytes # (auto) 0.5 10 ^3/uL (0-1.3); Monocytes % (auto) 7.8 % (0.0-12.0); Neutrophils # (auto) 4.2 10 ^3/uL (1.6-8.6); Neutrophils % (auto) 69.3 % (37.0-80.0); Platelet Count (auto) 278 10^3/uL (140-450); Red Blood Cells 2.65 10^6/uL (4.5-5.90); Red Cell Distribution Width 14.3 % (11.8-14.3); White Blood Cell 6.1 10^3/uL (4.4-10.8)
[2019-07-20 16:17] LABS: Alanine Aminotransferase 20 U/L (16-61); Albumin 3.1 g/dL (3.4-5.0); Anion Gap 9 (5-15); Aspartate Aminotransferase 15 U/L (15-37); BUN/Creatinine Ratio 4.4; Blood Urea Nitrogen 31 mg/dL (7-18); Calcium 8.3 mg/dL (8.5-10.1); Carbon Dioxide 29 mmol/L (21-32); Chloride 94 mmol/L (98-107); GFR African American 10 mL/min; GFR Non-African American 9 mL/min; Glucose 153 mg/dL (74-106); Magnesium 2.4 mg/dL (1.6-2.6); Potassium 3.7 mmol/L (3.5-5.1); Sodium 132 mmol/L (136-145)
[2019-07-20 16:22] LABS: Alkaline Phosphatase 57 U/L (45-117); Bilirubin, Total 0.7 mg/dL (0.2-1.0); Total Protein 7.1 g/dL (6.4-8.2)
[2019-07-20] MEDS ORDERED: NITROGLYCERIN 0.4 MG SL TAB SL PRN (16:45)
[2019-07-20] MEDS ORDERED: ALUM & MAG HYDROX-SIMETH LIQ(MAALOX) 30 ML PO PRN (16:45)
[2019-07-20] MEDS ORDERED: DOCUSATE SOD 100 MG CAP PO PRN (16:45)
[2019-07-20] MEDS ORDERED: MORPHINE SULF INJ 2 MG/ML SYRINGE 1ML IV PRN (16:45)
[2019-07-20 17:05] LABS: Cholesterol 130 mg/dL (< 200); HDL Cholesterol 25 mg/dL (40-59); LDL Cholesterol 68 mg/dL (< 100); Triglycerides 324 mg/dL (< 150)
[2019-07-20] MEDS: HYDROcodone-ACET 5/325MG TAB PO PRN ×2 (18:37→23:11)
[2019-07-20 20:10] VITALS: BP 168/91
--- NOTE | 2019-07-20 20:10 | NUR ---
Telemetry admit from ER Patient admitted to Telemetry unit and oriented to primary RN, unit, room, bed, and unit policies regarding patient care and visiting hours. Patient now on continuous telemetry monitoring, tele box #72 and telemetry reading on arrival to unit is sinus rhythm. Patient weighed by bedscale and encouraged to call if they need something. All questions and concerns addressed, patient verbalized understanding. Bed is in lowest position and locked. Board updated.
[2019-07-20] MEDS: MORPHINE SULF INJ 2 MG/ML SYRINGE 1ML IV PRN (20:42)
[2019-07-20] MEDS: ONDANSETRON HCL 4 MG/2 ML VIAL IV PRN (20:42)
[2019-07-20] MEDS ORDERED: LACTULOSE 20Gm/30ML SOLN PO PRN (21:15)
[2019-07-20] MEDS ORDERED: FUROSEMIDE 20 MG/2 ML VIAL IV ONE (21:15)
[2019-07-20] MEDS ORDERED: IPRATROPIUM BROM 0.5 MG/2.5ML INH SOL NEB PRN (21:30)
[2019-07-20] MEDS ORDERED: IPRATROPIUM BROM 0.5 MG/2.5ML INH SOL NEB ONE (21:30)
[2019-07-20] MEDS ORDERED: SERTRALINE HCL 50 MG TAB PO SCH (22:00)
[2019-07-20] MEDS: hydrALAZINE HCL 25 MG TAB PO SCH (23:04)
[2019-07-20] MEDS: GABAPENTIN 300 MG CAP PO SCH (23:05)
[2019-07-20] MEDS: ATORVASTATIN 20 MG TAB PO SCH (23:05)
[2019-07-20] MEDS: CARVEDILOL 3.125 MG TAB PO SCH (23:12)
[2019-07-21] VITALS (7 sets, daily range): BP systolic 136–179; BP diastolic 73–90
[2019-07-21] MEDS: MORPHINE SULF INJ 2 MG/ML SYRINGE 1ML IV PRN ×3 (00:19→10:40)
[2019-07-21] MEDS: hydrALAZINE HCL 20 MG/ML VL IV PRN ×2 (00:20→18:36)
[2019-07-21] MEDS: HYDROcodone-ACET 5/325MG TAB PO PRN ×3 (03:09→22:47)
[2019-07-21] MEDS: FUROSEMIDE 20 MG/2 ML VIAL IV SCH ×2 (05:38→18:35)
[2019-07-21] MEDS: hydrALAZINE HCL 25 MG TAB PO SCH ×3 (05:38→22:46)
--- NOTE | 2019-07-21 07:45 | NUR ---
OPENING NOTE ASSUMED CARE OF PT. PT AAOX4. NO S/S OF SOB OR DISTRESS NOTED. BED SET TO LOWEST POSITION/LOCKED, BEDSIDE RAILS UP X2, CALL LIGHT WITHIN REACH. INSTRUCTED PATIENT TO CALL FOR ASSISTANCE. UPDATED ON POC. PT VERBALIZED UNDERSTANDING. WILL CONTINUE TO MONITOR Q1H AND PRN.
[2019-07-21] MEDS: SEVELAMER 800 MG TAB PO SCH ×3 (07:56→18:35)
[2019-07-21] MEDS: CARVEDILOL 3.125 MG TAB PO SCH ×2 (10:03→22:46)
[2019-07-21] MEDS: FLUoxetine HCL 20 MG CAP PO SCH (10:04)
[2019-07-21] MEDS: ENOXAPARIN SOD 30 MG/0.3 ML SYRINGE SC SCH (10:05)
--- NOTE | 2019-07-21 11:35 | NUR ---
WOUND CARE NOTE: Wound care in to see patient per wound care request regarding multiple toe abrasions that are noted present on admission. Bedside nurse took photograph of patient's skin issue upon admission for reference. Patient is 58 years old male admitted for Syncope in patient with ESRD. Patient with history of Anemia, DM, ESRD and Htn. Patient is resting in bed in Rm. 286B. Patient is awake, alert and oriented. Patient is in no stated pain at this time. He's self turning and repositioning and his Rafael score is 20. No wound noted other than multiple scabbed abrasions to patient's R 2nd, R third toe and Lt 2nd toe, no drainage/odor noted, left open to air. Patient is not aware how he got the wounds. He states it could be from my shoes/socks. Patient tolerated well, no other wound noted. Recommended to bedside nurse, ANICETO Key to cleansed scabbed abrasions on patient's toes with Betadine per MD order,verbalized understanding. No further wound care monitoring needed at this time. RECOMMENDATION: Daily cleaning of multi toe abrasions with Betadine per MD order, see personal service representative as out patient for Diabetic Foot Care, reconsult for active wound, pressure injury, Low Rafael score of 12 and below. Addendum: 07/21/19 at 1649 by Nayana Delacruz RN Amended: Links added.
[2019-07-21 13:16] LABS: Basophils # (auto) 0.1 10 ^3/uL (0-0.2); Basophils % (auto) 1.2 % (0.0-2.0); Eosinophils # (auto) 0.8 10 ^3/uL (0-0.8); Eosinophils % (auto) 10.1 % (0.0-7.0); Hematocrit 27.7 % (41.0-53.0); Hemoglobin 9.6 g/dL (13.5-17.5); Lymphocytes % (auto) 11.9 % (10.0-50.0); Mean Corpuscular Hemoglobin 33.5 pg (28.0-32.0); Mean Corpuscular Hgb Conc. 34.5 g/dL (32.0-36.0); Mean Corpuscular Volume 96.9 fL (80.0-100.0); Monocytes # (auto) 0.7 10 ^3/uL (0-1.3); Neutrophils # (auto) 5.6 10 ^3/uL (1.6-8.6); Neutrophils % (auto) 68.8 % (37.0-80.0); Platelet Count (auto) 284 10^3/uL (140-450); Red Blood Cells 2.86 10^6/uL (4.5-5.90); Red Cell Distribution Width 14.3 % (11.8-14.3); White Blood Cell 8.2 10^3/uL (4.4-10.8)
[2019-07-21 13:29] LABS: INR 1.09 (0.9-1.15); Partial Thromboplastin Time 30.3 sec (23.64-32.05)
[2019-07-21 13:36] LABS: Blood Urea Nitrogen 40 mg/dL (7-18); Calcium 8.3 mg/dL (8.5-10.1); Chloride 95 mmol/L (98-107); Glucose 98 mg/dL (74-106); Potassium 4.4 mmol/L (3.5-5.1); Sodium 132 mmol/L (136-145)
[2019-07-21 13:43] LABS: Alanine Aminotransferase 19 U/L (16-61); Alkaline Phosphatase 59 U/L (45-117); Anion Gap 10 (5-15); Aspartate Aminotransferase 17 U/L (15-37); BUN/Creatinine Ratio 4.6; Bilirubin, Total 0.8 mg/dL (0.2-1.0); Carbon Dioxide 27 mmol/L (21-32); Cholesterol 125 mg/dL (< 200); Creatine Kinase IFCC 115 U/L (39-308); GFR African American 8 mL/min; GFR Non-African American 7 mL/min; HDL Cholesterol 22 mg/dL (40-59); LDL Cholesterol 64 mg/dL (< 100); Magnesium 2.9 mg/dL (1.6-2.6); Phosphorus 4.6 mg/dL (2.5-4.90); Triglycerides 234 mg/dL (< 150); Uric Acid 5.5 mg/dL (3.5-7.2)
--- NOTE | 2019-07-21 15:01 | NUR ---
ASSESSED PT FOR MED PRN TX PT ON 2L NC, SPO2 96%, HR 71, RR 14 WITH CLEAR BS. NO INDICATION FOR PRN MED NEB.
[2019-07-21] MEDS ORDERED: GABAPENTIN 300 MG CAP PO PRN (17:00)
[2019-07-21] MEDS: TAMSULOSIN HYDROCHLORIDE 0.4 MG CAP PO SCH (18:35)
--- NOTE | 2019-07-21 19:00 | NUR ---
Respiratory note: ASSESSED PT FOR PRN MED NEB AT THIS TIME, PT DENIES SOB AT THIS TIME, NO RESP DISTRESS NOTED, NO TX INDICATED, PULSE OX 97% ON RA, HR 88, RR 18, BILATERAL BS CLEAR.
--- NOTE | 2019-07-21 19:06 | NUR ---
OPENING SHIFT NOTE: ASSUMED CARE OF PATIENT. PATIENT IS AWAKE, ALERT AND ORIENTED X 4. NO S/S OF SOB OR DISTRESS NOTED, PATIENT COMPLAINS OF PAIN 5/10, WILL MEDICATE FOR PAIN PRN. BED IS IN LOWEST LOCKED POSITION, TWO SIDE RAILS RAISED, CALL GONZALES WITHIN REACH, AND BED ALARM ACTIVATED FOR SAFETY. CONNECTED TO CONTINUOUS SUPERVISOR BENZENE REFINING #72 AND CURRENT READING IS 90 BPM. INSTRUCTED ON POC AND ENCOURAGED TO CALL FOR ASSISTANCE, PATIENT VERBALIZES UNDERSTANDING. WILL CONTINUE TO MONITOR Q1 HR AND PRN.
[2019-07-21] MEDS: GABAPENTIN 300 MG CAP PO SCH (22:45)
[2019-07-21] MEDS: ATORVASTATIN 20 MG TAB PO SCH (22:45)
[2019-07-22] MEDS: FUROSEMIDE 20 MG/2 ML VIAL IV SCH ×2 (05:39→18:06)
[2019-07-22] MEDS: hydrALAZINE HCL 25 MG TAB PO SCH ×3 (05:40→22:19)
[2019-07-22 06:00] VITALS: BP 154/76
[2019-07-22 07:09] LABS: BUN/Creatinine Ratio 4.9; Calcium 8.6 mg/dL (8.5-10.1); Potassium 4.9 mmol/L (3.5-5.1)
--- NOTE | 2019-07-22 07:30 | NUR ---
OPENING NOTE ASSUMED CARE OF PT. PT ALERT AND ORIENTED. NO S/S OF SOB OR DISTRESS NOTED. BED SET TO LOWEST POSITION/LOCKED, BEDSIDE RAILS UP X2, CALL LIGHT WITHIN REACH. INSTRUCTED PATIENT TO CALL FOR ASSISTANCE. UPDATED ON POC. PT VERBALIZED UNDERSTANDING. WILL CONTINUE TO MONITOR Q1H AND PRN.
[2019-07-22 08:00] VITALS: BP 143/74
[2019-07-22] MEDS: SEVELAMER 800 MG TAB PO SCH ×3 (08:00→17:49)
[2019-07-22] MEDS: ONDANSETRON HCL 4 MG/2 ML VIAL IV PRN (08:53)
[2019-07-22] MEDS: MORPHINE SULF INJ 2 MG/ML SYRINGE 1ML IV PRN ×3 (08:53→22:19)
[2019-07-22] MEDS: ENOXAPARIN SOD 30 MG/0.3 ML SYRINGE SC SCH (09:39)
[2019-07-22] MEDS: FLUoxetine HCL 20 MG CAP PO SCH (09:39)
[2019-07-22] MEDS: CARVEDILOL 3.125 MG TAB PO SCH ×2 (09:40→22:18)
--- NOTE | 2019-07-22 11:00 | NUR ---
CLEANSED BILATERAL FOOT AND TOES PER MD ORDERS.
--- NOTE | 2019-07-22 12:07 | NUR ---
ASSESSED PT FOR PRN MED NEB, NO SOB, NO DISTRESS NOTED. PT ON 2L NC WITH SPO2 98%, CLEAR BS, HR 78, RR 16. NO INDICATION FOR MED NEB AT THIS TIME. WILL CONTINUE TO MONITOR PT.
[2019-07-22 13:00] VITALS: BP 153/83
[2019-07-22] MEDS: HYDROcodone-ACET 5/325MG TAB PO PRN (13:35)
[2019-07-22 17:00] VITALS: BP 156/80
[2019-07-22] MEDS: TAMSULOSIN HYDROCHLORIDE 0.4 MG CAP PO SCH (17:48)
[2019-07-22] MEDS: hydrALAZINE HCL 20 MG/ML VL IV PRN (18:07)
--- NOTE | 2019-07-22 19:08 | NUR ---
OPENING SHIFT NOTE: ASSUMED CARE OF PATIENT. PATIENT AWAKE, ALERT AND ORIENTED X 4. NO S/S OF SOB OR DISTRESS, PATIENT DENIES PAIN. BED IS IN LOWEST LOCKED POSITION, TWO SIDE RAILS RAISED AND CALL GONZALES WITHIN REACH. INSTRUCTED ON POC AND ENCOURAGED TO CALL FOR ASSISTANCE, ALL QUESTIONS ANSWERED, PATIENT VERBALIZED UNDERSTANDING. WILL CONTINUE TO MONITOR FOR CHANGES Q1 HR AND PRN.
[2019-07-22 20:00] VITALS: BP 140/77
--- NOTE | 2019-07-22 21:10 | NUR ---
Respiratory note: PT ASSESSED FOR PRN MED NEB TX. HR 85, RR 18, SPO2 97% ON RA. NO S/S OF ANY RESPIRATORY DISTRESS NOTED. ADVISED PT TO CALL IF TX IS NEEDED. RT NAME AND PAGER NUMBER WRITTEN ON PT'S BOARD.
[2019-07-22 22:02] VITALS: BP 140/77
[2019-07-22] MEDS: ATORVASTATIN 20 MG TAB PO SCH (22:17)
[2019-07-22] MEDS: GABAPENTIN 300 MG CAP PO SCH (22:18)
[2019-07-23] MEDS: HYDROcodone-ACET 5/325MG TAB PO PRN (01:28)
[2019-07-23] MEDS: MORPHINE SULF INJ 2 MG/ML SYRINGE 1ML IV PRN ×4 (02:25→22:12)
[2019-07-23 05:00] VITALS: BP 147/84
[2019-07-23] MEDS: FUROSEMIDE 20 MG/2 ML VIAL IV SCH ×2 (06:00→18:23)
[2019-07-23] MEDS: hydrALAZINE HCL 25 MG TAB PO SCH ×3 (06:00→22:02)
--- NOTE | 2019-07-23 06:30 | NUR ---
PATIENT TO RECEIVE DIALYSIS THIS THIS MORNING. AM HYDRALAZINE AND LASIX HELD FOR DIALYSIS. WILL CONTINUE TO MONITOR.
[2019-07-23] MEDS ORDERED: SODIUM CHL 0.9% 1000 ML BAG XX ONE (07:00)
--- NOTE | 2019-07-23 07:10 | NUR ---
Opening Shift Note: Assumed care of patient, awake and alert. No S/S of distress/SOB or pain. Bed in lowest locked position, side rails up x 2, call light within reach. Patient instructed on POC and to call for assist PRN, will continue to monitor for changes Q1hr and PRN.
[2019-07-23] MEDS: SEVELAMER 800 MG TAB PO SCH ×3 (08:17→18:22)
[2019-07-23 09:04] VITALS: BP 152/85
--- NOTE | 2019-07-23 09:33 | NUR ---
Respiratory note: ASSESSED PT FOR PRN TX PT WAS AWAKE AND ALERT, NO RESP DISTRESS NOTED. HR 78, RR 16, SPO2 96% ON ROOM AIR. BS ARE CLEAR T/O. PT KNOWS TO HAVE RT PAGED IF TX IS NEEDED.
[2019-07-23 09:35] LABS: Calcium 8.7 mg/dL (8.5-10.1); Potassium 5.3 mmol/L (3.5-5.1)
--- NOTE | 2019-07-23 09:37 | NUR ---
CRITICAL LAB CRITICAL CREATININE- 11.70 DR. MORGAN
[2019-07-23] MEDS: CARVEDILOL 3.125 MG TAB PO SCH ×2 (10:00→22:03)
--- NOTE | 2019-07-23 10:00 | NUR ---
1000 BLOOD PRESSURE MEDICATIONS HELD PENDING DIALYSIS. DR. MORGAN
[2019-07-23] MEDS: FLUoxetine HCL 20 MG CAP PO SCH (10:04)
[2019-07-23] MEDS: ENOXAPARIN SOD 30 MG/0.3 ML SYRINGE SC SCH (10:04)
[2019-07-23 13:00] VITALS: BP 121/71
--- NOTE | 2019-07-23 13:43 | NUR ---
PATIENT ASSISTED TO BEDSIDE COMMODE AT THIS TIME. PATIENT TOLERATED WELL
--- NOTE | 2019-07-23 14:00 | NUR ---
PT DECLINED P.T. BECAUSE OF DIALYSIS TO START IN A FEW MINUTES.
--- NOTE | 2019-07-23 16:20 | NUR ---
Assessment Patient is a 58-year old male who is alert and oriented. Prior to admission patient rented a room in [facility]. Patient has a walker for home use. Patient informed me he functions independently. Patient informed me he is on Dialysis with [facility] on Tuesday, Tuesday and Tuesday at 12:00 noon. Advised patient there is a Social Service consult for SNF Placement. Informed patient there is a physical therapy evaluation pending to see if he meets criteria for SNF placement. Informed patient Clinical information will be faxed to contracted facility. Informed patient Assembly Mechanic Zhane with [employer] informed me he does not have transportation benefits and he will be responsible for transportation. Informed patient he has the right to participate in all discharge planning. Patient verbalized understanding and agrees to discharge plan. Addendum: 07/24/19 at 0810 by SANJU CORTZE Amended: Links added.
--- NOTE | 2019-07-23 16:25 | NUR ---
D/C Planning Per SS consult for SNF placement. Notify , Dr. Schultz physical therapy evaluation is pending to determine if patient meets criteria for SNF. Faxed clinical information to [facility], [facility], [facility], [facility], [facility], and [facility]. Per Representatives with [facility], [facility], [facility] and [facility] they do not have dialysis bed available at this time. Pending on Physical therapy notes will contact [facility], [facility] and [facility] in the morning.
[2019-07-23 16:38] VITALS: BP 156/81
[2019-07-23] MEDS: TAMSULOSIN HYDROCHLORIDE 0.4 MG CAP PO SCH (18:22)
[2019-07-23] MEDS ORDERED: EPOETIN ALFA 10,000 UNIT/1 ML VIAL SC ONE (21:00)
--- NOTE | 2019-07-23 21:01 | NUR ---
Respiratory note: AT BEDSIDE TO ASSESS PT FOR PRN TX. TX NOT INDICATED AT THIS TIME. BS ARE CLEAR/DIMINISHED T/O. POX 95-96% ON RA. HR IN 80S. RT NAME AND PAGER ASSIGNMENT WRITTEN ON PTS ROOM BOARD.
--- NOTE | 2019-07-23 21:45 | NUR ---
Patient scraped abrasion on toe against bed. became open. Photo taken
[2019-07-23 22:00] VITALS: BP 158/90
[2019-07-23] MEDS: ATORVASTATIN 20 MG TAB PO SCH (22:03)
[2019-07-23] MEDS: GABAPENTIN 300 MG CAP PO SCH (22:03)
[2019-07-24] VITALS (8 sets, daily range): BP systolic 140–165; BP diastolic 53–85
--- NOTE | 2019-07-24 03:30 | NUR ---
CLOSING NOTE: Patient sleeping in bed. No S/S of pain, distress or SOB at this time. Care endorsed.
--- NOTE | 2019-07-24 03:35 | NUR ---
PT CARE RESUMED RECEIVED REPORT FROM INO RN, PT CURRENTLY SLEEPING, ON RA, BREATHING EVEN AND UNLABORED, NOTED DIALYSIS CATH TO RIGHT UPPER CHEST, SITE CDI, EASILY AWAKENED VIA VERBAL AND TACTILE STIMULI, NO C/O CP, SOB OR ANY OTHER DISCOMFORT, PT ENCOURAGED TO CALL FOR ASSISTANCE, CALL LIGHT WITHIN REACH, CONT CARE
[2019-07-24] MEDS: FUROSEMIDE 20 MG/2 ML VIAL IV SCH ×2 (06:00→17:38)
[2019-07-24] MEDS: hydrALAZINE HCL 25 MG TAB PO SCH ×3 (06:00→21:45)
[2019-07-24 06:07] LABS: BUN/Creatinine Ratio 5.4; Calcium 8.8 mg/dL (8.5-10.1)
[2019-07-24 06:14] LABS: Potassium 5.9 mmol/L (3.5-5.1)
--- NOTE | 2019-07-24 06:16 | NUR ---
CRITICAL LAB KCL 5.9, CREATININE 12.70, NEPHRO PAGED, SPOKE WITH TREY FROM DR OLEGARIO PATTEN, PT ASYMPTOMATIC, ON CONT TELE SR 81, CONT CARE
[2019-07-24] MEDS: SEVELAMER 800 MG TAB PO SCH ×3 (07:46→17:39)
[2019-07-24] MEDS: HYDROcodone-ACET 5/325MG TAB PO PRN ×2 (07:48→21:46)
--- NOTE | 2019-07-24 08:30 | NUR ---
PEREZ AT BEDSIDE DR MELVIN AT BEDSIDE, [facility]
[2019-07-24] MEDS: MORPHINE SULF INJ 2 MG/ML SYRINGE 1ML IV PRN (10:44)
[2019-07-24] MEDS: ENOXAPARIN SOD 30 MG/0.3 ML SYRINGE SC SCH (10:44)
--- NOTE | 2019-07-24 10:53 | NUR ---
DIALYSIS NURSE AT BEDSIDE
--- NOTE | 2019-07-24 12:35 | NUR ---
WOUND CARE NOTE: WOUND CARE IN TO SEE PATIENT PER REPORT FROM BEDSIDE NURSE NOTING THAT SCAB HAD FALLEN OFF OF PATIENT'S RIGHT #2 TOE. NO BLEEDING NOTED BY BEDSIDE NURSE OR WOUND CARE. NO OPEN WOUND. LEFT OPEN TO AIR. RECOMMEND: CONTINUATION WITH ALL PREVIOUSLY ORDERED WOUND CARE ORDERS BY HOSPITALIST.
--- NOTE | 2019-07-24 14:14 | NUR ---
DIALYSIS COMPLETE VS 126/65, P 89, TOTAL OUTPUT 548ML, PT ASYMPTOMATIC, HOB >30, CALL LIGHT WITHIN REACH, BED ALARM ACTIVATED, CONT CARE
--- NOTE | 2019-07-24 14:14 | NUR ---
D/C Planning Placed call to physical therapy ext. [phone] advising Cleve P.T evaluation is pending. Per Cleve patient will be evaluated today by Jovan. It is currently 14:15 and P.T evaluation is still pending.
--- NOTE | 2019-07-24 14:35 | NUR ---
ASSESSED PT FOR PRN MED NEB TX, PT ON RA WITH SPO2 95%, HR 91, RR 15, WITH CLEAR BS. PT ON THE PHONE WITH NO DISTRESS NOTED. MED NEB NOT INDICATED AT THIS TIME.
[2019-07-24] MEDS: FLUoxetine HCL 20 MG CAP PO SCH (15:08)
[2019-07-24] MEDS: CARVEDILOL 3.125 MG TAB PO SCH ×2 (15:09→21:44)
--- NOTE | 2019-07-24 15:43 | NUR ---
D/C Planning Per Representatives with [facility], [facility] and [facility] they do not have male bed available at this time. Contact [facility], [facility], [facility], and [facility]. Per Representatives with the facilities above they do not have male beds available for dialysis patient. Pending on P.T evaluation.
--- NOTE | 2019-07-24 16:03 | NUR ---
Est energy needs 1397-4795 (25-30 kcal/kg IBW) Est protein 105-114 (0.8-1g/kg IBW) Addendum: 07/24/19 at [address] Amended: Links added.
--- NOTE | 2019-07-24 16:29 | NUR ---
D/C Planning Faxed PT notes to patient health plan.
[2019-07-24] MEDS: TAMSULOSIN HYDROCHLORIDE 0.4 MG CAP PO SCH (17:39)
--- NOTE | 2019-07-24 19:15 | NUR ---
Opening Shift Note Received report from edwin Martinez RN. Assumed care of patient, who is alert and oriented x4 but confused at times. Respirations are even and unlabored. On room air saturating a 96%. No S/S of distress/SOB or pain. Bed is low, locked with 2x side rails up. Call light is within reach and bed alarm turned on. Instructed on POC and to call for assist PRN, will continue to monitor for changes Q1hr and PRN.
--- NOTE | 2019-07-24 19:29 | NUR ---
Respiratory note: NO PRN TX GIVEN AT THIS TIME, NOT INDICATED, NO SOB NOTED. SPO2 95% ON RA, HR 95, RR 18. PT IS UPSET, COMPLAINING OF PAIN AND THINKING HE IS DYING. VICE PRESIDENT OF OPERATIONS NOTIFIED, WILL NOTIFY RN.
[2019-07-24] MEDS: GABAPENTIN 300 MG CAP PO SCH (21:43)
[2019-07-24] MEDS: ATORVASTATIN 20 MG TAB PO SCH (21:44)
[2019-07-24] MEDS ORDERED: EPOETIN ALFA 10,000 UNIT/1 ML VIAL SC ONE (22:00)
[2019-07-25 05:00] VITALS: BP 157/82
[2019-07-25] MEDS: FUROSEMIDE 20 MG/2 ML VIAL IV SCH ×2 (05:56→17:51)
[2019-07-25] MEDS: hydrALAZINE HCL 25 MG TAB PO SCH ×3 (05:56→21:14)
[2019-07-25 09:00] VITALS: BP 126/66
[2019-07-25] MEDS: SEVELAMER 800 MG TAB PO SCH ×3 (09:16→17:52)
[2019-07-25] MEDS: ENOXAPARIN SOD 30 MG/0.3 ML SYRINGE SC SCH (09:17)
[2019-07-25] MEDS: FLUoxetine HCL 20 MG CAP PO SCH (09:17)
[2019-07-25] MEDS: CARVEDILOL 3.125 MG TAB PO SCH ×2 (09:17→21:15)
--- NOTE | 2019-07-25 10:14 | NUR ---
LAB PATIENT IS REFUSING LAB DRAWS.
--- NOTE | 2019-07-25 11:33 | NUR ---
Respiratory note: PT ASSESSED FOR PRN MN TX. HR 73, RR 20, POX 99% ON RA, BREATH SOUNDS ARE CLEAR. NO SOB OR DISTRESS NOTED AT THIS TIME. PT WAS NOTIFY TO HAVE RT PAGE FOR MN TX.
[2019-07-25 13:00] VITALS: BP 150/73
[2019-07-25] MEDS: ONDANSETRON HCL 4 MG/2 ML VIAL IV PRN (13:15)
[2019-07-25 16:45] VITALS: BP 128/86
--- NOTE | 2019-07-25 16:50 | NUR ---
D/C planning GARRICK Will advised me GARRICK Phelan with [facility] would like us to contact [facility] and [facility]. Faxed clinical information to facilities. per representatives they will review. Will follow up in the morning.
[2019-07-25] MEDS: TAMSULOSIN HYDROCHLORIDE 0.4 MG CAP PO SCH (17:51)
[2019-07-25] MEDS: HYDROcodone-ACET 5/325MG TAB PO PRN ×2 (18:09→22:43)
[2019-07-25] MEDS: LORazepam 0.5 MG TAB PO PRN (18:09)
--- NOTE | 2019-07-25 18:13 | NUR ---
Respiratory note: ASSESSMENT FOR PRN MED NEB TX. PT RESTING COMFORTABLY IN BED, NO RESPIRATORY DISTRESS NOTED. HR 83, SPO2 99% ON ROOM AIR, RR 16, BS DIMINISHED. MED NEB TX NOT INDICATED AT THIS TIME, PT AWARE OF MED NEB TX IF NEEDED AND TO HAVE RT PAGED. RN AT BEDSIDE. WILL CONTINUE TO MONITOR.
--- NOTE | 2019-07-25 19:30 | NUR ---
Opening Shift Note Assumed care of patient, awake and alert. No S/S of distress/SOB or pain. Safety measures in place bed in lowest position, side rails up x2, bed alarm on, and call light within reach. Instructed on POC and to call for assist PRN, will continue to monitor for changes Q1hr and PRN.
[2019-07-25] MEDS: ATORVASTATIN 20 MG TAB PO SCH (21:14)
[2019-07-25] MEDS: GABAPENTIN 300 MG CAP PO SCH (21:14)
[2019-07-25 21:36] VITALS: BP 163/90
[2019-07-25] MEDS: hydrALAZINE HCL 20 MG/ML VL IV PRN (22:44)
[2019-07-26] MEDS: hydrALAZINE HCL 25 MG TAB PO SCH ×3 (05:16→22:02)
[2019-07-26] MEDS: FUROSEMIDE 20 MG/2 ML VIAL IV SCH (05:17)
[2019-07-26 05:18] VITALS: BP 162/88
[2019-07-26] MEDS: HYDROcodone-ACET 5/325MG TAB PO PRN ×4 (05:18→22:05)
--- NOTE | 2019-07-26 06:10 | NUR ---
PT ASSESSED FOR PRN HHN TX. PT IS ON ROOM AIR, SPO2 96%, HR 86, RR 20. NO S/S OF RESPIRATORY DISTRESS. PRN HHN TX NOT INDICATED AT THIS TIME. WILL CONTINUE TO MONITOR.
--- NOTE | 2019-07-26 06:32 | NUR ---
[facility] called patient will be receiving dialysis around 1030. Will endorse to judi MORELAND.
[2019-07-26] MEDS: SEVELAMER 800 MG TAB PO SCH ×3 (08:16→18:03)
[2019-07-26] MEDS ORDERED: SODIUM CHL 0.9% 1000 ML BAG XX ONE (08:30)
[2019-07-26 09:00] VITALS: BP 147/81
[2019-07-26] MEDS: FLUoxetine HCL 20 MG CAP PO SCH (09:23)
[2019-07-26] MEDS: CARVEDILOL 3.125 MG TAB PO SCH ×2 (09:23→22:03)
[2019-07-26] MEDS: ENOXAPARIN SOD 30 MG/0.3 ML SYRINGE SC SCH (09:24)
[2019-07-26 13:00] VITALS: BP 110/58
--- NOTE | 2019-07-26 13:38 | NUR ---
I called Physical Therapy and spoke with Alessandra to ask if they can work more aggressively with patient-and get him up twice today. Per Alessandra, they have not been able to get him up yet due to dialysis being done.
--- NOTE | 2019-07-26 14:10 | NUR ---
I spoke with nurse Yesi regarding the plan of care for this patient/needing more aggressive physical therapy. Per Yesi-patient is done with dialysis-she will contact physical therapy and let them know so they can work with patient.
--- NOTE | 2019-07-26 15:45 | NUR ---
D/C Planning Patient health plan is not contracted with [facility]. Per Beatriz Barnes they requested authorization from Health Plan and it usually takes 24hrs. Will contact Beatriz Barnes.
[2019-07-26 16:29] VITALS: BP 151/88
[2019-07-26] MEDS: TAMSULOSIN HYDROCHLORIDE 0.4 MG CAP PO SCH (18:03)
[2019-07-26] MEDS: FUROSEMIDE 40 MG TAB PO SCH (18:04)
--- NOTE | 2019-07-26 18:43 | NUR ---
PT ASSESSED FOR PRN MED NEB TX. SPO2 96% ON RA, HR 89. PT DENIES ANY RESPIRATORY DISTRESS. NO TX INDICATED. PT IS AWARE TO HAVE RT PAGED IF TX NEEDED.
--- NOTE | 2019-07-26 19:36 | NUR ---
Opening Shift Note Assumed care of patient, awake and alert. No S/S of distress/SOB or pain. Safety measures in place bed in lowest position, side rails up x2, and call light within reach. Instructed on POC and to call for assist PRN, will continue to monitor for changes Q1hr and PRN.
[2019-07-26] MEDS: LORazepam 0.5 MG TAB PO PRN (20:45)
[2019-07-26] MEDS ORDERED: EPOETIN ALFA 4,000 UNIT/ML VL SC ONE (21:00)
[2019-07-26 21:37] VITALS: BP 151/65
[2019-07-26] MEDS: GABAPENTIN 300 MG CAP PO SCH (22:03)
[2019-07-26] MEDS: ATORVASTATIN 20 MG TAB PO SCH (22:03)
[2019-07-26] MEDS: hydrALAZINE HCL 20 MG/ML VL IV PRN (23:16)
[2019-07-27] MEDS: HYDROcodone-ACET 5/325MG TAB PO PRN ×4 (02:35→19:29)
[2019-07-27] MEDS: hydrALAZINE HCL 25 MG TAB PO SCH ×3 (04:51→21:02)
[2019-07-27] MEDS: FUROSEMIDE 40 MG TAB PO SCH ×2 (04:52→18:17)
[2019-07-27 04:53] VITALS: BP 171/85
--- NOTE | 2019-07-27 07:32 | NUR ---
Respiratory note: Assessed pt for prn medneb tx. HR 80, RR 16, SPO2 97% on room air. Breath sounds clear/diminished throughout. Pt denies SOB, no s/s of respiratory distress noted. Medneb tx not indicated at this time. Pt aware to call for RT if needed.
[2019-07-27 09:00] VITALS: BP 183/87
[2019-07-27] MEDS: SEVELAMER 800 MG TAB PO SCH ×3 (09:20→18:18)
[2019-07-27] MEDS: CARVEDILOL 3.125 MG TAB PO SCH ×2 (10:06→21:02)
[2019-07-27] MEDS: ENOXAPARIN SOD 30 MG/0.3 ML SYRINGE SC SCH (10:07)
[2019-07-27] MEDS: FLUoxetine HCL 20 MG CAP PO SCH (10:07)
[2019-07-27 10:38] VITALS: BP 183/87
--- NOTE | 2019-07-27 10:39 | NUR ---
Nutrition Followup Notes Wt: 114.2 kg Pt reports some nausea but also reports appetite is good with a po of 87.5% 07/25. Pt has ESRD on HD. Est energy needs [id number] (25-30 kcal/kg IBW) Est protein 105-114 (1.2-1.3g/kg IBW HD). Will reassess prn. LABS: BUN 68H, Creat 12.70H, Alb 3.0L GI: Pt reports no BM, RN I&O reports 2 BM 07/26 BS: 19 low risk, scabs left and right legs/toes, full wound detail on WC doc PES: Altered nutrition related labs aeb elevated lab values of BUN, creat r/t condition from chronic medical conditions Obesity aeb 134% of IBW and BMI of 31.8 which is obese r/t excessive caloric intake Comments 1) Continue to monitor pertinent labs, skin status, po intake 2) Refer pt to outpatient renal dietitian on DC 3) Continue current plan of care Expected Outcomes/Goals: 1) Pt will not gain further wt while in hospital 2) pt will maintain po intake of >75% 3) F/u mod 3-5 day
[2019-07-27 12:32] VITALS: BP 147/83
--- NOTE | 2019-07-27 14:49 | NUR ---
1430 07/27/19 I contacted [facility] Four Slide Machine Operator Zhane regarding authorization for [facility] and transportation arrangements. Faxed Notice Regarding Post Stabilization to [facility]-document scanned into [employer].
--- NOTE | 2019-07-27 16:21 | NUR ---
1615 07/27/19 I received a call from [facility] Tablet Machine Operator Zhane letting me know that she provided authorization to Adia at [employer], and that she provided authorization to [employer] for transportation ([phone])-she said [employer] will contact nurse's station regarding roll picker time.
--- NOTE | 2019-07-27 16:27 | NUR ---
D/C Planning Per GARRICK Valverde with [employer] [facility] they will be authorizing [facility] in [place] address: [address] [facility] [address]. Per GARRICK Valverde they will authorize transportation with [employer]:) auth# [id number]. GARRICK Valverde advised me [employer] will contact bedside nurse at ext [phone] and provided them with an ETA. Per Beatriz with [facility]:( [phone]) patient has been accepted to room [address] Abhinav Ewing. Informed ANICETO Irizarry transportation company will contact her with ETA and if they delay I advised her to contact them to obtain ETA. ANICETO Irizarry verbalize understanding.
[2019-07-27] MEDS: TAMSULOSIN HYDROCHLORIDE 0.4 MG CAP PO SCH (18:17)
--- NOTE | 2019-07-27 18:33 | NUR ---
Respiratory note: ASSESSED PT FOR PRN MED NEB AT THIS TIME, PT DENIES SOB AT THIS TIME, NO RESP DISTRESS NOTED, NO TX INDICATED. PULSE OX 96% ON RA, HR 89, RR 18, BILATERAL BS CLEAR.
--- NOTE | 2019-07-27 20:22 | NUR ---
Kerri from [employer] called patient will be picked up for transfer to [facility] at 2100.
--- NOTE | 2019-07-27 20:30 | NUR ---
Wound photo Discharge wounds photos taken.
[2019-07-27 21:00] VITALS: BP 153/69
[2019-07-27] MEDS: GABAPENTIN 300 MG CAP PO SCH (21:03)
[2019-07-27] MEDS: ATORVASTATIN 20 MG TAB PO SCH (21:03)
--- NOTE | 2019-07-27 21:40 | NUR ---
Patient 's belongings removed from safe. Money counted and verified by this RN and the patient. Envelope returned with funds to patient; copy made and placed in chart. Envelope not saved because patient needed the envelope to transport the funds with him.
--- NOTE | 2019-07-27 21:45 | NUR ---
Patient transferred to [facility]. Patient's IV removed without s/s of distress. Patient carpenter inspector removed and returned to technicians. Patient escorted off unit with [facility] on [facility]. Patient was free from pain and distress.
== END 2019-07-27 21:45 | DRG 70 ==
LOC: ER 15:20 → EDBD 15:20 → TELE 15:21 → TELE-WESTW 20:11
PROVIDERS: ADMIT Hospitalist; ATTEND Family Medicine
PROC: 5A1D70Z Performance of Urinary Filtration, Intermittent, Less than 6 Hours Per Day (ICD-10-PCS; principal; 2019-07-24)
PROC: 5A1D70Z Performance of Urinary Filtration, Intermittent, Less than 6 Hours Per Day (ICD-10-PCS; 2019-07-26)
DX: G93.41 Metabolic encephalopathy (principal); N18.6 End stage renal disease; I12.0 Hypertensive chronic kidney disease with stage 5 chronic kidney disease or end stage renal disease; E44.0 Moderate protein-calorie malnutrition; E11.22 Type 2 diabetes mellitus with diabetic chronic kidney disease; E11.649 Type 2 diabetes mellitus with hypoglycemia without coma; R55 Syncope and collapse; Z53.20 Procedure and treatment not carried out because of patient's decision for unspecified reasons; J44.9 Chronic obstructive pulmonary disease, unspecified; N40.0 Benign prostatic hyperplasia without lower urinary tract symptoms; D63.8 Anemia in other chronic diseases classified elsewhere; R29.6 Repeated falls; Z79.84 Long term (current) use of oral hypoglycemic drugs; Z99.2 Dependence on renal dialysis; Z68.31 Body mass index [BMI] 31.0-31.9, adult; Z80.9 Family history of malignant neoplasm, unspecified; Z82.49 Family history of ischemic heart disease and other diseases of the circulatory system; Z87.442 Personal history of urinary calculi; Z90.5 Acquired absence of kidney; Z87.01 Personal history of pneumonia (recurrent)
CPT/HCPCS: 36415; 70450; 71045; 80048; 80053; 80061; 82306; 82550; 82962; 83036; 83735; 83880; 83970; 84100; 84484; 84550; 85025; 85610; 85730; 87040; 87081; 90935; 93306; 96374; 96375; 96376; 97110; 97116; 97163; 97530; G0378; J0885; J1642; J2405

== ENCOUNTER 2020-03-02 08:18 | Emergency (ER) | payer MEDICARE, OTHER ==
[~2020-03-02] VITALS: Ht 182.9 cm; Wt 99.8 kg
[2020-03-02] MEDS ORDERED: DEXTROSE (50%) 50ML SYRG IV ONE (08:19)
[2020-03-02] MEDS ORDERED: EPINEPHrine HCL 1 MG/10 ML SYRG IV ONE (08:19)
[2020-03-02] MEDS ORDERED: ATROPINE SULF 1 MG/10ml SYR IV ONE (08:19)
[2020-03-02] MEDS ORDERED: CALCIUM CHLOR(10%) 100MG/ML 10ML SYRINGE IV ONE (08:19)
[2020-03-02] MEDS ORDERED: AMIODARONE HCL (50 MG/ ML) 3 ML VIAL IV ONE (08:19)
[2020-03-02] MEDS ORDERED: SODIUM BICARBONATE 8.4% INJ 50ML SYRINGE IV ONE (08:19)
[2020-03-02 09:15] VITALS: BP 110/54
[2020-03-02 10:16] LABS: Hemoglobin 8.1 g/dL (13.5-17.5); Platelet Count (auto) 101 10^3/uL (140-450)
[2020-03-02 10:18] LABS: Hematocrit 25.3 % (41.0-53.0); Mean Corpuscular Hemoglobin 29.2 pg (28.0-32.0); Mean Corpuscular Hgb Conc. 31.9 g/dL (32.0-36.0); Mean Corpuscular Volume 91.6 fL (80.0-100.0); Red Blood Cells 2.77 10^6/uL (4.5-5.90); Red Cell Distribution Width 19.1 % (11.8-14.3); White Blood Cell 14.2 10^3/uL (4.4-10.8)
[2020-03-02 10:20] LABS: Basophils % (manual) 0 (0.0-2.0); Blast Cells 0; Eosinophils % (manual) 0 (0-7); Metamyelocytes % 0; Myelocytes % 0; Promyelocytes % 0; Reactive Lymphocytes 0
[2020-03-02 10:32] LABS: INR 1.26 (0.9-1.15); Partial Thromboplastin Time 33.6 sec (23.0-31.2)
[2020-03-02 10:35] LABS: Albumin 1.8 g/dL (3.4-5.0); Calcium 8.3 mg/dL (8.5-10.1)
[2020-03-02 10:44] LABS: BUN/Creatinine Ratio 15.5; Bilirubin, Total 2.9 mg/dL (0.2-1.0); Total Protein 5.2 g/dL (6.4-8.2)
[2020-03-02 12:44] LABS: Band Neutrophils % (manual) 25; Lymphocytes % (manual) 6 (10.0-50.0); Monocytes % (manual) 3 (0-12)
[2020-03-02] MEDS ORDERED: DEXTROSE 50% SYRINGE 50 ML IV ONE ×2 (15:14→15:27)
[2020-03-02] MEDS ORDERED: EPINEPHrine HCL 1 MG/10 ML SYRG ONE (15:25)
== END 2020-03-03 06:36 ==
LOC: EDBD 08:18 → ER 08:18
DX: I46.9 Cardiac arrest, cause unspecified (principal); R41.82 Altered mental status, unspecified; E11.22 Type 2 diabetes mellitus with diabetic chronic kidney disease; I12.0 Hypertensive chronic kidney disease with stage 5 chronic kidney disease or end stage renal disease; N18.6 End stage renal disease
CPT/HCPCS: 31500; 36415; 80053; 82962; 83880; 84484; 85007; 85027; 85610; 85730; 92950; 99291; J0171; J0282; J7042